=== PATIENT | male | born 1970 | race Caucasian/White ===

== ENCOUNTER 2016-12-07 20:02 | Emergency (ER) | payer OTHER, BC ==
[2016-12-07 20:19] VITALS: BP 137/80; PULSE 67; RESP 20; TEMP 98.2; O2SAT 98
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
--- NOTE | 2016-12-08 09:33 | RAD ---
PROCEDURE: Right Knee Radiographs. HISTORY: pain, trauma , plywwod fell on knee. This history of remote injury COMPARISON: None. FINDINGS: BONES: Normal. No fracture. JOINTS: Normal. No osteoarthritis. JOINT EFFUSION: Suprapatellar joint effusion OTHER FINDINGS: An 8 mm metallic like foreign body projects within the anterolateral distal thigh deep subcutaneous soft tissues. Technologist has noted that the patient reports having had a remote injury and understands this metallic like foreign body to be related to that old injury. Current injury involves a piece of plywood. Distal to the radiopaque foreign body there are anterior soft tissue changes consistent with edema and current injury. A small hematoma here is not excluded. As above a suprapatellar joint effusion is suggested IMPRESSION: No fracture. Metallic foreign body inferred as relating to remote trauma per history. Distal to this anterior distal thigh soft tissues, there is soft tissue swelling consistent with the recent trauma. Suprapatellar joint effusion.
== END 2016-12-07 22:27 | disposition home or self-care (01) ==
LOC: C.ER 20:02
DX: S70.311A Abrasion, right thigh, initial encounter (principal); S70.11XA Contusion of right thigh, initial encounter; W20.8XXA Other cause of strike by thrown, projected or falling object, initial encounter; Y93.89 Activity, other specified; Y92.89 Other specified places as the place of occurrence of the external cause